=== PATIENT | male | born 1980 | race Caucasian/White ===

== ENCOUNTER 2017-03-14 10:56 | Day surgery (SDC) | payer BC ==
[~2017-03-14 10:56] MED LIST: Buffered Lidocaine 0.9% SYRIN* 5 ML/SYR SYRINGE INTRADERM ONE; Dexamethasone IV* 4 MG/ML 1 ML (4 MG) IV SLOW PU ONE; Famotidine IV* 10 MG/ML 2 ML (20 mg) IV ONE
[2017-03-14] MEDS ORDERED: Dexamethasone IV* 4 MG/ML 1 ML (4 MG) ONE (11:35)
[2017-03-14] MEDS ORDERED: Buffered Lidocaine 0.9% SYRIN* 5 ML/SYR SYRINGE ONE (11:35)
[2017-03-14] MEDS ORDERED: ceFAZolin 2 GM PREMIX (*) 2 GM/50 ML BAG IVPB ONE (11:35)
[2017-03-14] MEDS ORDERED: Famotidine IV* 10 MG/ML 2 ML (20 mg) ONE (11:35)
[2017-03-14] MEDS ORDERED: Midazolam* 1 MG/ML 10 ML VIAL (10 MG) ONE (12:44)
[2017-03-14] MEDS ORDERED: Ondansetron INJ* 2 MG/ML VIAL ONE (12:44)
[2017-03-14] MEDS ORDERED: Propofol* 10 MG/ML 20 ML BTL IV PUSH ONE (12:44)
[2017-03-14] MEDS ORDERED: fentaNYL* 50 MCG/ML 2 ML VIAL (100 MCG VIAL) ONE ×3 (12:44→15:56)
[2017-03-14] MEDS ORDERED: Chloroprocaine 2%* 20 ML VIAL ONE (12:45)
[2017-03-14] MEDS ORDERED: EPINEPHrine AMP 1 MG/ML ONE (13:19)
[2017-03-14] MEDS ORDERED: DiMENhydriNATE IV* 50 MG/ML VIAL IV PUSH PRN (13:37)
[2017-03-14] MEDS ORDERED: fentaNYL* 50 MCG/ML 2 ML VIAL (100 MCG VIAL) IV PRN (13:37)
[2017-03-14] MEDS ORDERED: Ondansetron INJ* 2 MG/ML VIAL IV PRN (13:37)
[2017-03-14] MEDS ORDERED: oxyCODONE/Acetamin 5/325 MG* TAB PO PRN (13:37)
[2017-03-14] MEDS ORDERED: methylPREDNISolone ACETATE 40* 40 MG/ML 1 ML VIAL ONE (15:19)
[2017-03-14] MEDS ORDERED: Bupivacaine 0.5% SDV PF* 30 ML VIAL ONE (15:19)
[2017-03-14] MEDS ORDERED: Acetaminophen TAB* 325 MG ONE (15:57)
[2017-03-14 16:22] VITALS: BP 119/78
[2017-03-14] MEDS ORDERED: oxyCODONE/Acetamin 5/325 MG* TAB ONE (16:46)
--- NOTE | 2017-03-16 04:37 | OP ---
OPERATIVE REPORT: DATE OF OPERATION: 03/14/17 DATE OF : 78 SURGEON: Dr. Dimitri Clark. BACK SHOE CUTTER: GAIL Zepeda A physician dietetic assistant was required for the length of the procedure for positioning, knee manipulation, and help with instrumentation. ANESTHESIOLOGIST: Dr. Gorge Black. ANESTHESIA: Spinal anesthesia, local anesthesia with approximately 10 cc of 0.5 % Marcaine without epinephrine, placed into the subcutaneous tissue surrounding each of the 2 skin incision sites. PRE-OP DIAGNOSES: 1. Left knee, likely loose body, possible medial meniscus tear. 2. Persistent left knee pain and effusions. 3. Articular cartilage defect, trochlear groove. POST-OP DIAGNOSES: 1. Left knee loose bodies. 2. Left knee multiple articular cartilage defects, trochlear groove, lateral femoral condyle. 3. Unstable articular cartilage flap, full thickness, trochlear groove. OPERATIVE PROCEDURE: 1. Left knee arthroscopic removal of loose bodies. 2. Left knee arthroscopic evaluation of articular cartilage and debridement of unstable articular cartilage tear, trochlear groove of femur. 3. Left knee cortisone injection, intraarticular. ANTIBIOTICS: Ancef 2 g IV. IV FLUIDS: Crystalloid 1200 cc. TOURNIQUET TIME: 56 minutes at 300 mmHg. COMPLICATIONS: None. SPECIMENS: None. IMPLANTS: None. ESTIMATED BLOOD LOSS: Minimal. 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 The patient's MRI showed a possible loose body and some articular cartilage injury. The patient had dealt with recurrent pain and effusions for 1.5 years insufficiently responsive to nonoperative management. This included cortisone injection to the left knee at his index clinic visit on 04/09/16 as well as naproxen and physical therapy. The patient also had some locking of his knee he reported preoperatively. The plan for our surgery was to remove any loose body, evaluate both menisci for a tear that might not have shown up on MRI. It was also to evaluate articular cartilage injury. I had detected injury to the trochlear groove on preoperative MRI while the radiologist had read that there was a medial femoral condyle articular cartilage injury. The patient was not interested in microfracture or any more sophisticated articular cartilage treatment given that he did not want to deal with a significant period of nonweightbearing postoperatively. We therefore discussed that I would evaluate thoroughly any articular cartilage defect to map out the size to help determine if the treatment were needed what the patient would be most appropriate for. The patient and I discussed risks and potential complications of procedure including bleeding, infection, nerve or blood vessel injury, knee pain, stiffness, osteoarthritis. DESCRIPTION OF PROCEDURE: Preoperatively, written consent was signed. Operative extremity was marked in the preoperative holding. The patient was taken back to the operating room. The anesthesiologist, Dr. Black, and I had discussed preoperatively the patient's diagnosis of hereditary angioedema. I discussed that diagnosis with the patient in clinic and we had determined that the safest anesthesia would be spinal anesthesia. Therefore, the patient was given spinal anesthesia with only light sedation. The spinal anesthetic was placed by Dr. Gorge Black. The patient was placed supine on the operating room table. The patient was only likely sedated. He was able to do monitors, arthroscopic during surgery. A tourniquet was placed, about the proximal left thigh. The distal left thigh was placed in a circumferential thigh myers. The left leg was prepped from foot to thigh with a ChloraPrep. It was draped. Surgical time-out was performed. In order to minimize any trauma to the left lower leg to possibly lessen any clinical manifestations of hereditary angioedema, I started the case without a tourniquet. I established an anterolateral knee arthroscopy portal using standard technique. I commenced my diagnostic arthroscopy. I started at the patellar femoral compartment. There was a clear defect in the trochlear groove. It was long from superior to inferior, but not wide. It looked like a crevice, a small crack in the trochlear groove. There was some bursitis tissue anteriorly. I dropped down at the medial compartment. No clear meniscus tear. No clear articular cartilage lesion. Almost as soon as I entered the medial compartment , I saw one loose body. I moved the suction on my arthroscope and 2 loose bodies appeared, 1 appearing slightly more solid than the other. I continued my diagnostic arthroscopy. The patient's ACL and PCL were intact. He did have some small amounts of synovitic tissue about the anterior aspect of the knee joint. I moved to the lateral compartment. The patient had no clear lateral meniscal tear, but he did have a small articular cartilage defect, narrow in the central part of the lateral femoral condyle running from anterior to posterior. I returned to the medial compartment. I established an anteromedial portal under direct visualization so that I would be able to probe the roots and posterior horn of the medial meniscus as well as get any loose body in that location. I entered an arthroscopic shaver and cleared the loose body that I had visualized previously. I next probed the medial meniscus from anterior root to posterior root. There was no area of tear or instability visualized or palpated. I debrided some anterior synovitic tissue with an arthroscopic shaver. I visualized the entire medial compartment viewing both from anterolateral and anteromedial to be thorough. I probed just posterior to the posterior root and posterior horn of the medial meniscus and was unable to stir up any loose body, additional, from that location, which is where a loose body had been sitting on preoperative MRI. I moved to the lateral compartment. I did the same thing there, thorough viewing both anterolateral and anteromedial and probing of meniscus from anterior to posterior root. I next inspected the articular cartilage lesion in the trochlear groove as I felt that this was more likely to be the cause of the patient's pain and effusions. Now with some anterior synovitic tissue removed, I had better visualization of the trochlear groove. What I saw was a clear full-thickness defect, running superior to inferior in the central part of the trochlear groove. Then medial to the groove itself, the proximal most extent of the medial femoral condyle or just medial to the groove, there was a second lesion. This was full-thickness and slightly longer than it was wide. Closer examination and just with most gentle probing with an arthroscopic probe revealed that the defect in the middle of the trochlear groove had a large flap of unstable articular cartilage. This was full thickness. There was no bone on its undersurface. Therefore, there was no possibility of healing of this lesion and no possibility of treatment with a dart or screw. Therefore, I removed this unstable flap of articular cartilage. I removed it with arthroscopic biters. When a ring curette became available, I used that as well to debride back to a stable rim of articular cartilage. I then probed the more medial lesion and it had stable articular cartilage at its rim circumferentially. I then tested for stability via probing the lateral femoral condyle lesion. No additional articular cartilage needed to be debrided. I next endeavored to measure the size of the 3 articular cartilage lesions encountered during the scope for future planning and for patient education. I made measurements using 2 different probes. The central trochlear groove lesion was measured to be approximately 12 x 12 mm. The more medial lesions just medial to the trochlear groove was measured approximately 8 x 11 mm with one probe and 8 x 12 mm with another. The smaller lesions about the lateral femoral condyle was measured to be 2 x 5 mm in size. It should be noted during the course of this procedure early on, the visibility was not particularly good. There was a little bit of bleeding. I used VAPR electrocautery to try to cauterize any bleeding from the fat pad deep to the patellar tendon. To improve my visualization, I elevated the tourniquet after applying an Esmarch. The tourniquet was at 300 mmHg. After I completed measuring the size of all the articular cartilage defects, I made one final pass at trying to remove any loose bodies in the knee. I found some additional loose bodies in the popliteal recess. They were all small, but I still removed them. I probed again just posterior to the posterior root of the medial meniscus. I probed between the cruciate ligaments and posterior to them and no additional loose bodies found. I also looked into the suprapatellar pouch and found no loose bodies there. Instruments and fluid were removed from the knee. We closed the skin incisions with figure 12 stitches using nylon 4-0 suture. I injected Depo-Medrol, 3 cc of 40 mg/mL into the knee joint, intraarticular. I then injected into the subcutaneous tissues about each skin incision, a total of 10 cc of 0.5% Marcaine. Xeroform, 4x4, sterile Webril, Mendoza bandage from foot to proximal thigh. DISPOSITION: The patient was to be discharged home when medically stable. Crutches as needed. Dressing changes as per my instructions. Percocet as needed for pain control. Aspirin for 2 weeks for DVT prophylaxis. As the patient had discussed preoperatively, he was going to slightly increase his Danazol dosing perioperatively to avoid any inflammation flare secondary to his hereditary angioedema. I will see him in the office in 10 to 14 days postoperatively. [id number]/[facility] #: [id number] CANDE
== END 2017-03-14 17:02 | disposition home or self-care (01) ==
LOC: OR 10:56
PROVIDERS: ATTEND Orthopaedic Surgery
DX: M23.8X2 Other internal derangements of left knee (principal); M23.42 Loose body in knee, left knee; M25.462 Effusion, left knee; D84.1 Defects in the complement system
CPT/HCPCS: A9270-GY; J0171; J0690; J1030; J1100; J2250; J2400; J2405; J2704; J3010